=== PATIENT | male | born 1955 | race Caucasian/White ===

== ENCOUNTER 2016-08-08 12:53 | Emergency (ER) | payer BC ==
[2016-08-08 13:03] VITALS: BP 154/86
[2016-08-08] MEDS ORDERED: Ibuprofen TAB* 400 MG PO ONE (13:28)
--- NOTE | 2016-08-08 13:35 | ED ---
Upper Extremity Pain - HPI Summary HPI Summary: 60 yr old male with left elbow pain. The patient recalls the specific time when his elbow started hurting. He states it was Monday the 05 of August. He was moving heavy pieces of steel at work and his elbow was strained. He states over the weekend his elbow has gotten more painful. He state he did not go to his 530 am shift today at work, and needs a work note. He has had tennis elbow before and he points to the lateral and medial condyles of the humerus as being the focus of pain. - History of Current Complaint Chief Complaint: UCUpperExtremity Stated Complaint: LEFT ELBOW PAIN Time Seen by Provider: 08/08/16 13:22 - Allergies/Home Medications Allergies/Adverse Reactions: Allergies Allergy/AdvReac Type Severity Reaction Status Date / Time No Known Drug Allergy Allergy See Comment Verified 08/08/16 13:03 ENVIRONMENTAL/SEASONAL Allergy SINUS Uncoded 08/08/16 13:03 HAYFEVER PROBLEMS PMH/Surg Hx/FS Hx/Imm Hx Endocrine/Hematology History: Reports: Hx Diabetes Cardiovascular History: Reports: Hx Hypertension, Other Cardiovascular Problems/ Disorders - CHOLESTEROL CONTROL WITH MEDS Denies: Hx Pacemaker/ICD History: Denies: Hx Renal Disease Musculoskeletal History: Reports: Hx Arthritis - GENERALIZED, MORE ACTIVE IN RIGHT KNEE PRESENTLY, Hx Tendonitis - BILATERAL ELBOWS Sensory History: Reports: Hx Cataracts - LEFT, Hx Contacts or Glasses - READING GLASSES Denies: Hx Hearing Aid Opthamlomology History: Reports: Hx Cataracts - LEFT, Hx Contacts or Glasses - READING GLASSES Psychiatric History: Denies: Hx Panic Disorder - Surgical History Surgery Procedure, Year, and Place: CATARACT REMOVED RT EYE, APPENEDECTOMY, ARTHROSCOPIC BOTH KNEES, Right total knee 2016, Left eye cataract Hx Anesthesia Reactions: No Infectious Disease History: No Infectious Disease History: Denies: Traveled Outside the [place] in Last 30 Days - Social History Alcohol Use: Rare Substance Use Type: Reports: Marijuana Substance Use Comment - Amount & Last Used: denies smoking pot at this visit Smoking Status (MU): Former Smoker Type: Cigarettes Amount Used/How Often: 1 PPD Length of Time of Smoking/Using Tobacco: 20 YEARS Have You Smoked in the Last Year: No Review of Systems Constitutional: Negative Negative: Fever, Chills Eyes: Negative ENT: Negative Cardiovascular: Negative Respiratory: Negative Positive: Other - left elbow pain Negative: Bruising All Other Systems Reviewed And Are Negative: Yes Physical Exam Triage Information Reviewed: Yes Vital Signs On Initial Exam: Initial Vitals Temp Pulse Resp BP Pulse Ox 99.6 F 100 16 154/86 99 08/08/16 12:59 08/08/16 12:59 08/08/16 12:59 08/08/16 12:59 08/08/16 12:59 Vital Signs Reviewed: Yes Appearance: Positive: Well-Appearing, No Pain Distress Skin: Positive: Warm Head/Face: Positive: Normal Head/Face Inspection Eyes: Positive: Normal, EOMI ENT: Positive: Normal ENT inspection Neck: Positive: Supple Respiratory/Lung Sounds: Positive: Clear to Auscultation Cardiovascular: Positive: Pulses are Symmetrical in both Upper and Lower Extremities - symmetric radial pulses Musculoskeletal: Positive: Other - Left elbow is with tenderness over the lateral and medial condyles of the elbow. There is no joint effusion, no redness, no increased warmth. No bruising. He has limited range of motion on extension. He has suppination and pronation but with pain. Neurological: Positive: Normal, Sensory/Motor Intact, Alert, Oriented to Person Place, Time, CN Intact II-III Diagnostics - Vital Signs Vital Signs Temp Pulse Resp BP Pulse Ox 08/08/16 12:59 99.6 F 100 16 154/86 99 - Laboratory Lab Statement: Any lab studies that have been ordered have been reviewed, and results considered in the medical decision making process. - Radiology left elbow xray Radiology Interpretation Completed By: Radiologist Course/Dx - Course Course Of Treatment: 60 yr old male with left elbow pain, arthritis, epicondilitis, and bursitis. He has Dr Abreu and Dr Bernstein as his orthopedic specialists. He states he will go to follow up with them. - Diagnoses Provider Diagnoses: Bursitis of left elbow, Epicondylitis elbow, medial, Epicondylitis, lateral, Degenerative joint disease of elbow, left Discharge - Discharge Plan Condition: Good Disposition: HOME Patient Education Materials: Elbow Bursitis (ED), Tennis Elbow (ED), Arthritis (ED) Forms: *Work Release Referrals: Juan Segura MD [Primary Care Provider] - 2 Days Oneyda Abreu MD [Medical Doctor] - 1 Day
--- NOTE | 2016-08-08 13:54 | RAD ---
INDICATION: Increasing LEFT elbow pain and poor range of motion without proceeding injury. COMPARISON: No relevant prior exams available on the [facility] PACS for comparison. TECHNIQUE: AP, lateral, and oblique views LEFT elbow. REPORT: Elbow joint effusion. No cortical disruption or suspicious trabecular irregularity to suggest fracture. Normal articular alignment. Moderate osteophytosis throughout. Enthesophyte/bone spur at the sublime tubercle of the ulna corresponding with the anterior band of the ulnar collateral ligament insertion. Ossification along the course of the radial collateral ligament. Large enthesophyte at the triceps tendon insertion. Soft tissue swelling over the olecranon fossa which may reflect olecranon bursitis. IMPRESSION: 1. Osteoarthritis. 2. Joint effusion. Negative for fracture or visualized loose bodies. 3. 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 4. Large triceps tendon insertion enthesophyte. 5. Dorsal soft tissue swelling which may reflect olecranon bursitis.
== END 2016-08-08 14:30 | disposition home or self-care (01) ==
LOC: UCCORT 12:53
DX: M70.32 Other bursitis of elbow, left elbow (principal); Y93.89 Activity, other specified; M77.12 Lateral epicondylitis, left elbow; M77.02 Medial epicondylitis, left elbow; M19.022 Primary osteoarthritis, left elbow; E11.9 Type 2 diabetes mellitus without complications; I10 Essential (primary) hypertension; Z98.41 Cataract extraction status, right eye; F12.90 Cannabis use, unspecified, uncomplicated; Z87.891 Personal history of nicotine dependence
CPT/HCPCS: 99213; A9270-GY; G0463

== ENCOUNTER 2017-03-15 16:29 | Emergency (ER) | payer SELFPAY ==
[2017-03-15 17:58] VITALS: BP 152/82
--- NOTE | 2017-03-15 18:40 | UC ---
Hand/Wrist HPI - HPI Summary HPI Summary: P tpresents with c/o madrigal finger timps to right hand fingers 2 and 3. Pt reports that he works outside. Pt states he was working last week during very cold weather wearing gloves. Pt states that right distal finger tips 2 & 3 have gradually begun to darkened and become numb. - History Of Current Complaint Chief Complaint: UCSkin Stated Complaint: RIGHT INDEX/MIDDLE FINGER INJURY WC Time Seen by Provider: 03/15/17 18:28 Hx Obtained From: Patient ?: No Onset/Duration: Gradual Onset, Lasting Days, Worse Since - osnet Severity Initially: Mild Severity Currently: Moderate Pain Intensity: 6 Character Of Pain: Burning Alleviating Factor(s): Nothing Associated Signs And Symptoms: Positive: Numbness/Tingling, Other - darkening of distal finger tips on right hand 2 & 3 Related History: Dominant Hand Right - Allergies/Home Medications Allergies/Adverse Reactions: Allergies Allergy/AdvReac Type Severity Reaction Status Date / Time No Known Drug Allergy Allergy See Comment Verified 03/15/17 17:48 ENVIRONMENTAL/SEASONAL Allergy SINUS Uncoded 03/15/17 17:48 HAYFEVER PROBLEMS Home Medications: Home Medications Pain Med 1 tab PO DAILY PRN 03/15/17 [History Confirmed 03/15/17] PMH/Surg Hx/FS Hx/Imm Hx Previously Healthy: Yes - Surgical History Surgical History: Yes Surgery Procedure, Year, and Place: CATARACT REMOVED RT EYE, APPENDECTOMY, ARTHROSCOPIC BOTH KNEES, Right total knee 2015, Left eye cataract - Family History Known Family History: Positive: Cardiac Disease - Social History Occupation: Employed Full-time Lives: With Family Alcohol Use: Rare Substance Use Type: Marijuana Substance Use Comment - Amount & Last Used: denies smoking pot at this visit Smoking Status (MU): Current Every Day Smoker Type: Cigarettes Amount Used/How Often: 1 PPD Length of Time of Smoking/Using Tobacco: 20 YEARS Have You Smoked in the Last Year: Yes When Did the Patient Quit Smoking/Using Tobacco: 2008 - Immunization History Most Recent Influenza Vaccination: NONE Most Recent Tetanus Shot: 2009 Most Recent Pneumonia Vaccination: 2007 Review of Systems Constitutional: Negative Skin: Other - numbness and dusky/blackened finger tips Eyes: Negative ENT: Negative Respiratory: Negative Cardiovascular: Negative Gastrointestinal: Negative Genitourinary: Negative Motor: Negative Neurovascular: Decreased Sensation Musculoskeletal: Other: - distal finger tips of right 2 & 3 blackened, numbness Neurological: Numbness Psychological: Negative Is Patient Immunocompromised?: No All Other Systems Reviewed And Are Negative: Yes Physical Exam Triage Information Reviewed: Yes Appearance: Well-Appearing Vital Signs: Initial Vital Signs Temp 98 F 03/15/17 17:52 Pulse 87 03/15/17 17:52 Resp 18 03/15/17 17:52 BP 152/82 03/15/17 17:52 Pulse Ox 100 03/15/17 17:52 Vital Signs Reviewed: Yes Eye Exam: Normal ENT Exam: Normal Neck exam: Normal Respiratory Exam: Normal Musculoskeletal Exam: Other Musculoskeletal: Positive: Other: - right fingers distal tips 2 &3 balckened and numbness, Neurological Exam: Other Neurological: Positive: Other: - numbness, distal finger tips right 2&3 Psychological Exam: Normal Skin Exam: Other - balckedn finger tip right hand distal tips of 2&3. sluggish cap refill. Hand/Wrist Course/Dx - Course Course Of Treatment: I discussed the need to follo wup with an orthopedic provider as soon as possible. Pt verbalized understanding and agreed to plan of care. - Differential Dx/Diagnosis Differential Diagnosis/HQI/PQRI: Infection, Other - rosales bite Provider Diagnoses: Frostbite right finger tips 2 &3 Discharge - Discharge Plan Condition: Stable Disposition: HOME Patient Education Materials: Frostbite (ED) Referrals: Juan Segura MD [Primary Care Provider] - If Needed Oneyda Abreu MD [Medical Doctor] - As Soon As Possible Additional Instructions: Please follow up with Dr. Abreu as soon as possible.
== END 2017-03-15 18:57 | disposition home or self-care (01) ==
LOC: UCCORT 16:29
DX: T33.531A Superficial frostbite of right finger(s), initial encounter (principal); X31.XXXA Exposure to excessive natural cold, initial encounter; Y93.89 Activity, other specified; Y92.9 Unspecified place or not applicable; Y99.0 Civilian activity done for income or pay; Z98.42 Cataract extraction status, left eye; Z98.41 Cataract extraction status, right eye; Z90.89 Acquired absence of other organs; Z96.651 Presence of right artificial knee joint; Z87.891 Personal history of nicotine dependence
CPT/HCPCS: 99211; G0463

== ENCOUNTER 2023-12-18 14:36 | Inpatient (IN) ==
[2023-12-18] MEDS ORDERED: Naloxone 0.4 mg VIAL 0.4 mg/ml 1 ml VIAL IV PRN (15:08)
[2023-12-18] MEDS ORDERED: Metoclopramide 5 MG/ML VIAL (10 mg) IV PRN (15:08)
[2023-12-18] MEDS ORDERED: fentaNYL 100 mcg/2 ml 50 MCG/ML VIAL IV PRN (15:08)
[2023-12-18] MEDS ORDERED: Ondansetron 4 mg VIAL 2 MG/ML 2 ml VIAL IV PRN ×2 (15:08→19:11)
[2023-12-18] MEDS ORDERED: ceFAZolin 2 GM PREMIX 2 GM/50 ML BAG ONE (15:25)
[2023-12-18] MEDS ORDERED: Midazolam 2 mg/2 ml VIAL 1 mg/ml 2 ml VIAL (2 mg) ONE ×3 (15:32→17:01)
[2023-12-18] MEDS ORDERED: Propofol 10 MG/ML 20 ML BTL ONE (15:32)
[2023-12-18] MEDS ORDERED: Lidocaine 2% PF 5 ML VIAL ONE (15:32)
[2023-12-18] MEDS ORDERED: fentaNYL 100 mcg/2 ml 50 MCG/ML VIAL ONE ×4 (15:32→18:52)
[2023-12-18] MEDS: Lactated Ringers 1000 ml BAG 1,000 ML IV SCH ×2 (15:33→21:07)
[2023-12-18] MEDS ORDERED: NS 0.45% 1000 ml BAG 1,000 ML IV SCH (16:00)
[2023-12-18] MEDS ORDERED: Rocuronium 50 mg VIAL 10 mg/ml 5 ml VIAL (50 mg) ONE (16:30)
[2023-12-18] MEDS ORDERED: Bupivacaine 0.25% SDV 30 ML ONE (16:47)
[2023-12-18] MEDS ORDERED: Ondansetron 4 mg VIAL 2 MG/ML 2 ml VIAL ONE (18:23)
[2023-12-18] MEDS ORDERED: Dexamethasone IV 4 MG/ML VIAL 1 ml VIAL ONE (18:23)
[2023-12-18] MEDS ORDERED: Magnesium Hydroxide LIQ 30 ML UDC PO PRN (19:11)
[2023-12-18] MEDS ORDERED: Ondansetron ODT 4 mg TAB 4 MG TAB PO PRN (19:11)
[2023-12-18] MEDS ORDERED: Lactulose 30 ml UDC PO PRN (19:11)
[2023-12-18] MEDS ORDERED: Dextrose 50% Syringe 50 ml 25 GM/50 ML SYRINGE ONE ×2 (19:44→19:47)
[2023-12-18] MEDS: Dextrose 50% Syringe 50 ml 25 GM/50 ML SYRINGE IV PUSH PRN (19:50)
[2023-12-18] MEDS ORDERED: Vancomycin per Pharmacy 1 EA NOTE FOLLOW UP SCH (20:00)
[2023-12-18] MEDS: Buffered Lidocaine 1% SYRIN 1 ml INTRADERM ONE (20:50)
[2023-12-18] MEDS: Acetaminophen IV 1 GM/100ML 1,000 MG/100 ML BAG IV ONE (20:50)
[2023-12-18] MEDS: Scopolamine 1 mg/72hr PATCH TRANSDERM ONE (20:50)
[2023-12-18] MEDS ORDERED: Dextrose 50% Syringe 50 ml 25 GM/50 ML SYRINGE IV PUSH PRN (21:41)
[2023-12-18] MEDS: Cefepime 1 GM in Dextrose 1 GM/50 ML BAG IV SCH (21:55)
[2023-12-18] MEDS: Magnesium Hydroxide LIQ 30 ML UDC PO SCH (22:00)
[2023-12-18] MEDS: Vancomycin 1,750 MG in NS 0.9% 500 ml BAG 500 ML IVPB ONE (23:56)
[2023-12-19 05:38] LABS: Hematocrit 33.4 % (38-53); Hemoglobin 11.4 g/dL (13.2-16.3); Mean Platelet Volume 6.4 fL (7.5-11.2); Platelet Count 669 10^3/uL (150-450)
[2023-12-19 06:33] LABS: Calcium 8.4 mg/dL (8.6-10.3); Creatinine, Serum 1.28 mg/dL (0.67-1.17); Potassium 6.2 mmol/L (3.5-5.0); eGFR CKD-EPI 62.1 (>60)
[2023-12-19] MEDS ORDERED: Lactated Ringers 1000 ml BAG 1,000 ML IV SCH (07:00)
[2023-12-19] MEDS: CALCIUM GLUCONATE 1GM/50ML NS 1 GM/50 ML BAG IV ONE (07:24)
[2023-12-19] MEDS: SODIUM ZIRCONIUM CYCLOSILICATE 10 GM PACKET PO ONE (07:24)
[2023-12-19 08:22] LABS: Calcium 8.9 mg/dL (8.6-10.3); Creatinine, Serum 1.22 mg/dL (0.67-1.17); Potassium 6.2 mmol/L (3.5-5.0); eGFR CKD-EPI 65.8 (>60)
[2023-12-19] MEDS: Vitamin THERAPEUTIC TAB PO SCH (08:30)
[2023-12-19 09:15] LABS: Urine Osmo 284 mOsm/kg (150-1150)
[2023-12-19] MEDS: Sodium Polystyrene ORAL.SUSP 15 GM/60 ML BTL PO ONE (10:22)
[2023-12-19] MEDS: Dextrose 50% Syringe 50 ml 25 GM/50 ML SYRINGE IV PUSH ONE (10:34)
[2023-12-19] MEDS: Vancomycin 1000 MG in NS 0.9% 250 ML IVPB SCH (11:53)
[2023-12-19] MEDS: Vancomycin Random Level NOTE FOLLOW UP ONE (11:58)
[2023-12-19 12:47] LABS: Calcium 9.5 mg/dL (8.6-10.3); Creatinine, Serum 1.14 mg/dL (0.67-1.17); Potassium 5.2 mmol/L (3.5-5.0); eGFR CKD-EPI 71.4 (>60)
[2023-12-19 12:48] LABS: Osmolality Serum 285 mOsm/kg (275-295)
[2023-12-20 06:16] LABS: Hematocrit 37.5 % (38-53); Hemoglobin 12.4 g/dL (13.2-16.3); Mean Platelet Volume 6.8 fL (7.5-11.2); Platelet Count 768 10^3/uL (150-450)
[2023-12-20 06:33] LABS: Creatinine, Serum 0.94 mg/dL (0.67-1.17); Potassium 5.1 mmol/L (3.5-5.0)
[2023-12-20 07:59] VITALS: BP 143/76
[2023-12-20 12:32] LABS: Creatinine, Serum 1.07 mg/dL (0.67-1.17); Vancomycin Trough 13.3 mcg/mL
[2023-12-20] MEDS: Vancomycin Trough Check NOTE FOLLOW UP ONE (13:12)
== END 2023-12-20 13:47 | disposition home or self-care (01) | DRG 516 ==
LOC: OR 14:36 → INTOOBSV 20:28 → SSU 20:28
PROVIDERS: ADMIT Orthopaedic Surgery Hand Surgery; ATTEND Orthopaedic Surgery Hand Surgery